=== PATIENT | female | born 1935 | race American Indian/Alaskan Native ===

== ENCOUNTER → 2019-02-15 | Day surgery (SDC) | payer MEDICARE, OTHER ==
[2019-02-01 11:03] LABS: BASOPHILS # (AUTO) 0.1 (0.0-0.1); BASOPHILS % 0.8 % (0.0-1.0); EOSINOPHILS # (AUTO) 0.3 (0.0-0.4); EOSINOPHILS % 3.8 % (0.0-6.0); HEMATOCRIT 33.6 % (34.2-44.1); HEMOGLOBIN 10.8 g/dL (12.0-16.0); LYMPHOCYTES # (AUTO) 1.4 (1.0-3.2); MEAN CORPUSCULAR HEMOGLOBIN 26.3 pg (28-32); MEAN CORPUSCULAR HGB CONC 32.1 g/dL (31-35); MONOCYTES # (AUTO) 0.7 (0.2-0.8); MONOCYTES % 8.7 % (4.4-11.3); NEUTROPHILS # (AUTO) 5.1 (2.1-6.9); NEUTROPHILS % 67.2 % (38.7-80.0); PLATELET COUNT 353 x10e3/uL (140-360); RED CELL DISTRIBUTION WIDTH 14.6 % (11.7-14.4)
[~2019-02-15] MED LIST: ASPIRIN81 MG PO; GLIMEPIRIDE2 MG PO; GLUCAGON FOR INJ 1 MG VIAL ONE; HYOSCYAMINE 0.125 MG TAB ONE; LISINOPRIL2.5 MG PO; METFORMIN HCL850 MG PO; MULTIVITAMINS1 EAC7 PO; PROPOFOL IV EMULSION 10 MG/ML 50 ML VIAL ONE; TURMERIC1 GM PO
--- OUTSIDE RECORDS SUMMARY | 2019-02-15 09:53 | XMS REPORT ---
Author Author [facility] Address Unknown Phone Unavailable Care Team Providers Care Die Stamper Name Role Phone Amos Rubio Unavailable Unavailable Problems This patient has no known problems. Allergies, Adverse Reactions, Alerts This patient has no known allergies or adverse reactions. Medications This patient has no known medications. Encounters Start Date/Time End Date/Time Encounter Type Admission Type Attending Clinicians Care Facility Care Department Encounter ID 2018-06-02 10:02:00 2018-06-02 10:02:00 Outpatient Amos Rubio [id number]
--- OUTSIDE RECORDS SUMMARY | 2019-02-15 09:53 | XMS REPORT | Summary of Care ---
Author Author GISSEL ELLSWOTRH M.D. Organization Unknown Address Unknown Phone Unavailable Care Team Providers Care Copyman Name Role Phone GISSEL ELLSWORTH M.D. Unavailable Unavailable SO MUHAMMAD MD Unavailable Unavailable Unavailable Unavailable Functional Status Name Dates Details Functional status health issues are not documented Status: Name Dates Details Cognitive status health issues are not documented Status: Problems Name Dates Details Primary osteoarthritis of left knee (715.16, M17.12) Status: Active Primary osteoarthritis of right knee (715.16, M17.11) Status: Active Medications Name Dates Details Lisinopril 5 MG Oral Tablet Active Glimepiride 2 MG Oral Tablet * Refills: 0 Active metFORMIN HCl - 850 MG Oral Tablet * Refills: 0 Active Aspirin 81 MG TABS * Refills: 0 Active Allergies and Adverse Reactions Name Dates Details No Known Drug Allergies (Allergy) Status: Active Past Medical History Name Dates Details History of joint pain (V13.59, Z87.39) Status: Resolved Procedures Procedure Dates Details History of No history of surgery Completed Immunization Name Dates Details Immunizations not documented Social History Name Dates Details Unknown if ever smoked Vital Signs Date Test Result Details [id number] BP Systolic 129 mm[Hg] Status: BP Diastolic 66 mm[Hg] Status: Height 60 in Status: Weight 115 lb Status: Body Mass Index Calculated 22.46 kg/m2 Status: Body Surface Area Calculated 1.48 m2 Status: Heart Rate 66 /min Status: Results Date Description Value Details Results not documented Plan of Care Name Dates Details Planned Observations Planned Goals not documented Interventions Provided Labs/Procedures/Imaging* [O] Xray KNEE COMPLETE 4 OR MORE VIEWS; Done: 12 Jan 2019 Plan* Completed at Today's Appointment: * Injection * bilateral knee * Patient Education/Instructions: * Patient Education Provided * Reassurance * patient was provided with home exercises today * Follow Up: * Please schedule an appointment as needed for any future problems or concerns. * Consider Euflexxa if symptoms continue * For the patient's osteoarthritis, we will initiate a non-operative regimen including bracing, home exercise program versus physical therapy, topical or oral NSAIDS as medically tolerated, weight management, assistive devices as needed, and steroid, viscosupplement, or PRP injections, or Cool-lief nerve ablation. They understand that OA can not be cured but we will try to manage the symptoms and can escalate treatment if conservative measures fail to control their symptoms. They understand that definitive management would involve total knee replacement, which we might explore if symptoms are not controllable with these conservative measures and if the patient meets medical and BMI criteria. * After discussion with the patient, I have recommended an injection. she has consented to the procedure and would like to move forward today. The patient was injected with 6 ml of Lidocaine (Lot:[id number] exp: 03/26/2022 ND:[id number]) and 2 ml of Depo-Medrol (Lot:[id number] exp :08/25/2019 NDC: 8998-9959-82 ) under sterile conditions in the right and left knee. The injection was given intra-articularly by Manuel Jenkins NP. Following the injection, the patient noted mild pain relief. * This encounter was performed by Dr. Asa Carrillo Instructions Name Dates Details Instructions not documented Encounters Appointment; GISSEL ELLSWORTH M.D. Encounter Diagnosis: Problem not documented On: 12-Jan-2019 8:15
--- OUTSIDE RECORDS SUMMARY | 2019-02-15 09:53 | XMS REPORT | Clinical Summary ---
Author Author [facility] Address Unknown Phone Unavailable Care Team Providers Care Companion Caregiver Name Role Phone Dionne Blas MD PCP Allergies Not on File Medications Not on file Active Problems Not on file Encounters Care Team Description Date Type Specialty Amos Rubio MD Breast cancer screening 06/06/2018 Hospital Radiology Encounter Amos Rubio MD Breast cancer screening (Primary Dx) 06/02/2018 Transcribe Access Orders after 02/14/2018 Social History Date Tobacco Use Types Packs/Day Years Used Never Assessed Sex Assigned at Date Recorded Not on file Industry Job Start Date Occupation Not on file Not on file Not on file Travel End Travel History Travel Start No recent travel history available. 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 COMPARISON: None available. INDICATION: 83-year-old female presenting for routine screening. FINDINGS: There are scattered areas of fibroglandular density. Bilateral vascular calcifications are present. Benign round lucent centered calcifications are also seen in both breasts. No significant dominant mass, asymmetry or architectural distortion in either breast. IMPRESSION:No mammographic evidence of malignancy. RECOMMENDATION: Annual screening mammogram. BI-RADS 2: BENIGN This facility is accredited by [employer] for Mammography. A negative x-ray report should not delay biopsy if a dominant or clinically suspicious mass is present. Not all cancers are identified by x-ray. 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
[2019-02-15 13:50] VITALS: BP 106/60
--- NOTE | 2019-02-15 15:29 | Operative Report ---
DATE OF PROCEDURE: 02/15/2019 SURGEON: Adrian Blas MD PROCEDURE: An EGD with biopsies and colonoscopy. INDICATIONS FOR EGD: Acid reflux. INDICATIONS FOR COLONOSCOPY: Colorectal cancer screening. MEDICATIONS: The patient was done under MAC, please see anesthesiologist's note. PROCEDURE IN DETAIL: With the patient in left lateral decubitus position, a flexible fiberoptic Olympus gastroscope was introduced into the esophagus under direct visualization without any difficulty. There was some patchy erythema noted in distal esophagus. The scope was then advanced with ease into the stomach traversing a small sliding hiatal hernia. Mucosa overlying the antrum and the body revealed some patchy erythema and [id number] edema and biopsies were obtained and sent to stain for H pylori. The pylorus was of normal contour and shape, it was intubated with ease and the scope was advanced all the way to the second portion of the duodenum. Biopsies were obtained from the proximal second portion and duodenal bulb to rule out sprue. The scope was then withdrawn back into the stomach and retroflexed. Mucosa overlying the fundus and cardia appeared to be within normal limits. The scope was then straightened out, it was subsequently withdrawn. The patient tolerated the procedure well. IMPRESSION: 1. Distal esophagitis, mild. 2. Small sliding hiatal hernia. 3. Gastritis, biopsied. Biopsies sent to stain for Helicobacter pylori. 4. Rule out sprue. PLAN: Follow up histology. Initiate Protonix 40 mg one p.o. q.a.m. a.c. PROCEDURE IN DETAIL: The patient was then turned around after adequate lubrication of the anal canal, a flexible fiberoptic Olympus colonoscope was inserted into the rectum with ease and advanced all the way to the cecum. It was then withdrawn slowly, mucosa overlying the cecum, ascending colon and transverse colon appeared to be within normal limits. Some diverticular disease was noted in the distal descending and the sigmoid. The rectum appeared to be within normal limits. The scope was then retroflexed into the distal rectum and small internal hemorrhoids were noted, none of which was actively bleeding. The scope was then straightened out, it was subsequently withdrawn. The patient tolerated the procedure well. IMPRESSION: 1. Diverticulosis. 2. Internal hemorrhoids, none actively bleeding. PLAN: Initiate high-fiber, low-fat diet. Initiate high-fiber supplement. There is no need for followup colonoscopy in this patient. MD ROXANE Black/PERICO /[id number] cc: Matias Blas MD
== END | disposition home or self-care (01) ==
LOC: OR 09:27
PROVIDERS: ATTEND Internal Medicine Gastroenterology
DX: Z12.11 Encounter for screening for malignant neoplasm of colon (principal); K29.80 Duodenitis without bleeding; K29.70 Gastritis, unspecified, without bleeding; K21.9 Gastro-esophageal reflux disease without esophagitis; K20.9 Esophagitis, unspecified; K44.9 Diaphragmatic hernia without obstruction or gangrene; K57.30 Diverticulosis of large intestine without perforation or abscess without bleeding; K64.8 Other hemorrhoids; B96.81 Helicobacter pylori [H. pylori] as the cause of diseases classified elsewhere; E11.9 Type 2 diabetes mellitus without complications; I10 Essential (primary) hypertension; Z01.810 Encounter for preprocedural cardiovascular examination; Z01.812 Encounter for preprocedural laboratory examination; Z79.82 Long term (current) use of aspirin; Z79.84 Long term (current) use of oral hypoglycemic drugs
CPT/HCPCS: 43239; G0121; 36415; 45378; 82948; 85025; 88305; 88312; 93005; J1610